=== PATIENT | male | born 1970 | race Caucasian/White ===

== ENCOUNTER 2016-12-23 06:47 | Emergency (ER) | payer OTHER ==
[2016-12-23 06:53] VITALS: BP 119/73; PULSE 86; RESP 20; TEMP 98.4; O2SAT 93
--- NOTE | 2016-12-23 07:11 | EDPHY ---
H & P Stated Complaint: allergic reaction to leftt eye Time Seen by Provider: 12/23/16 06:57 HPI/ROS: CHIEF COMPLAINT: Periorbital swelling HISTORY OF PRESENT ILLNESS: Patient presents to the ED with a 1 day history of periorbital swelling. 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 The patient did take Benadryl prior to arrival. The patient denies any difficulty breathing, sensation of or pharyngeal swelling or generalized rash. The patient denies any new prescription medications. 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 REVIEW OF SYSTEMS: A comprehensive 10 point review of systems is otherwise negative aside from elements mentioned in the history of present illness. Source: Family Exam Limitations: No limitations - Personal History Current Tetanus Diphtheria and Acellular Pertussis (TDAP): Unsure - Medical/Surgical History Hx Asthma: No Hx Chronic Respiratory Disease: No Hx Diabetes: No Hx Cardiac Disease: No Hx Renal Disease: No Hx Cirrhosis: No Hx Alcoholism: No Hx HIV/AIDS: No Hx Splenectomy or Spleen Trauma: No Other PMH: alkylosing spondylosis, gerd, L shoulder surg - Social History Smoking Status: Never smoked - Physical Exam Exam: General Appearance: Alert, no distress Eyes: Pupils equal and round no pallor or injection ENT, Mouth: Mucous membranes moist Respiratory: There are no retractions, lungs are clear to auscultation Cardiovascular: Regular rate and rhythm Gastrointestinal: Abdomen is soft and nontender, no masses, bowel sounds normal Neurological: A&O, normal motor function, normal sensory exam, normal cranial nerves Skin: Periorbital swelling consistent with mild allergic reaction Musculoskeletal: Neck is supple nontender Extremities: symmetrical, full range of motion Constitutional: Initial Vital Signs Temperature (C) 36.9 C 12/23/16 06:51 Heart Rate 86 12/23/16 06:51 Respiratory Rate 20 12/23/16 06:51 Blood Pressure 119/73 12/23/16 06:51 O2 Sat (%) 93 12/23/16 06:51 O2 Delivery Mode Room Air Allergies/Adverse Reactions: kiwi Allergy (Verified 12/23/16 06:49) pollen extracts Allergy (Verified 12/23/16 06:50) Home Medications: Medication Instructions Recorded Enbrel 01/14/16 Unk Gerd Med 01/14/16 Medical Decision Making ED Course/Re-evaluation: The patient presents to the ED with a mild allergic reaction. The patient took Benadryl prior to arrival. He will be provided a prescription for prednisone. The patient will be discharged home with customary aftercare instructions and return precautions. Departure - Departure Disposition: Home, Routine, Self-Care Clinical Impression: Allergic reaction Condition: Good Instructions: Allergies (ED) Additional Instructions: 1. Take Benadryl 50 mg every 6 hours as needed. 2. Take prednisone as directed for next 5 days. 3. Please return to the ED for markedly worsening symptoms or other concerns. 4. Please use albuterol inhaler as needed for any shortness of breath. Referrals: BRANDON ANGEL [Primary Care Provider] - As per Instructions
== END 2016-12-23 07:15 | disposition home or self-care (01) ==
DX: T78.40XA Allergy, unspecified, initial encounter (principal)

== ENCOUNTER 2017-01-27 13:53 | Emergency (ER) | payer OTHER ==
[2017-01-27 14:07] VITALS: BP 136/92; PULSE 78; RESP 16; TEMP 98.8; O2SAT 98
--- NOTE | 2017-01-27 14:50 | EDPHY ---
H & P Time Seen by Provider: 01/27/17 14:38 HPI/ROS: CHIEF COMPLAINT: Scalp lesions HISTORY OF PRESENT ILLNESS: 46-year-old male complaining of a scalp lesions x2. The 1st on his right temporal region has been present for few years and he recently noticed a new lesion in his lower occipital region. These are both nontender. These have both never been evaluated by medical professional. No drainage. PHYSICAL EXAM (Prior to examination, patient consented to physical exam, hands were washed and my usual and customary physical exam procedures followed) 1) GENERAL: Well-developed, well-nourished, alert and oriented. Appears to be in no acute distress. 2) HEAD: Normocephalic 3) HEENT: sclera anicteric 4) LUNGS: Breathing comfortably. 5) SKIN: on the patient's right temporal region and on his right lower occipital region he has two discrete lesions which appear to be superficial, nontender, fluctuant. Smoking Status: Never smoked Constitutional: Initial Vital Signs Temperature (C) 37.1 C 01/27/17 14:00 Heart Rate 78 01/27/17 14:00 Respiratory Rate 16 01/27/17 14:00 Blood Pressure 136/92 H 01/27/17 14:00 O2 Sat (%) 98 01/27/17 14:00 O2 Delivery Mode Room Air Allergies/Adverse Reactions: kiwi Allergy (Verified 01/27/17 14:00) pollen extracts Allergy (Verified 01/27/17 14:00) Home Medications: Medication Instructions Recorded Enbrel 01/14/16 Unk Gerd Med 01/14/16 Albuterol [Ventolin Hfa Inhaler] 2 puffs IH QID PRN #1 mdi 12/23/16 predniSONE [prednisone 20mg (RX)] 3 tab PO DAILY #15 tab 12/23/16 MDM/Departure - [facility] ED Course/Re-evaluation: The patient's lesions are subacute, I do not think they are consistent with infection or cellulitis. I do not think antibiotics indicated. We discussed possible etiologies including, but not limited to malignancy like, lipoma, Pilar cyst. 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 He has been given this referral information. - Depart Disposition: Home, Routine, Self-Care Clinical Impression: Skin lesion of scalp Condition: Good Instructions: Acute Rash (ED) Referrals: Agustni Madison MD [Medical Doctor] - 5-7 days, call for appt. (Dr. Agustin Madison is a zipper sewing machine operator)
== END 2017-01-27 14:50 | disposition home or self-care (01) ==
DX: L98.9 Disorder of the skin and subcutaneous tissue, unspecified (principal)

== ENCOUNTER 2017-11-12 12:53 | Emergency (ER) | payer OTHER ==
[2017-11-12 13:25] VITALS: RESP 16; TEMP 98.1
[2017-11-12] MEDS ORDERED: DIAZEPAM 5 MG/ML 1 ML SYR IVP ONE (15:50)
--- NOTE | 2017-11-12 15:55 | EDPHY ---
H & P Smoking Status: Never smoked <Letty Gautam M - Last Filed: 11/12/17 18:10> <Azul Forbes M - Last Filed: 11/13/17 16:54> Time Seen by Provider: 11/12/17 15:24 HPI/ROS: CHIEF COMPLAINT: Back pain, syncopal episodes HISTORY OF PRESENT ILLNESS: 47-year-old male presents to the emergency department by private vehicle complaining of severe low back pain. The patient has a history of ankylosing spondylitis and is on Enbrel. He has been doing well over the last year. He forgot his medication over the last week and then remember to take it yesterday. He was starting to have pain last night in his low back. He states he woke up at 3:30 a.m. This morning and had a syncopal episode while he was urinating. He woke about a carpeted floor. He states that he remembered feeling dizzy and lightheaded and very unstable and lowered himself to the carpeted floor. He did not think that he hit his head or lost consciousness. No neck pain. He was sitting at the breakfast table this morning at 7:00 a.m. And had an urge to urinate and then subsequently had a syncopal episode again. He did not hit his head or lose consciousness. He denies headache. He presents now to the emergency department with back pain. He does have a history of ankylosing spondylitis however he states that this feels much different. He denies dysuria, urgency or frequency with urination. REVIEW OF SYSTEMS: Constitutional: No fever, no chills. Eyes: No double or blurry vision. ENT: No sore throat. Respiratory: No cough, no shortness of breath. Cardiac: No chest pain. Gastrointestinal: No abdominal pain, vomiting or diarrhea. Genitourinary: No dysuria. Musculoskeletal: Back pain. No neck pain. Skin: No rashes. Neurological: No headache. (Letty Gautam) Past Medical/Surgical History: Ankylosing spondylitis, GERD, orthopedic surgery (Letty Gautam) Social History: (Letty Gautam) Physical Exam: General Appearance: Alert, no distress. No visible signs of trauma to his head. He is mentating normally and answering questions appropriately. 102/83, 93, 97% on room air. Eyes: Pupils equal and round. Extraocular motions are all intact. ENT: Mouth: Mucous membranes moist. Respiratory: No wheezing, rhonchi, or rales, lungs are clear to auscultation. Cardiovascular: Regular rate and rhythm. Gastrointestinal: Abdomen is soft and nontender, no masses, no rebound or guarding, bowel sounds normal. Neurological: Alert and oriented x 3, cranial nerves II through XII grossly intact Skin: Warm and dry, no rashes. Musculoskeletal: Nontender to palpate along the cervical, thoracic or lumbar spine. Neck is supple. Unable to reproduce pain with palpation in his lumbar spine with. Patient has pain with straight leg raise especially when relaxes his leg back down. Reflexes are 2+ and equal for lower extremities bilaterally. He has pain with trying to roll laterally onto his left side. There is no inflammation or redness noted to his back. No rash. Extremities: Full range of motion and no peripheral edema. Psychiatric: Patient is oriented X 3, there is no agitation. (Letty Gautam) Constitutional: Initial Vital Signs Temperature (C) 36.7 C 11/12/17 13:22 Heart Rate 93 11/12/17 13:22 Respiratory Rate 16 11/12/17 13:22 Blood Pressure 102/83 H 11/12/17 13:22 O2 Sat (%) 97 11/12/17 13:22 O2 Delivery Mode Room Air Allergies/Adverse Reactions: kiwi Allergy (Verified 11/12/17 13:26) pollen extracts Allergy (Verified 11/12/17 13:26) Home Medications: Medication Instructions Recorded Enbrel 01/14/16 Unk Gerd Med 01/14/16 Albuterol [Ventolin Hfa Inhaler] 2 puffs IH QID PRN #1 mdi 12/23/16 predniSONE [prednisone 20mg (RX)] 3 tab PO DAILY #15 tab 12/23/16 methylPREDNISolone [Medrol Dose 1 each PO AD #0 ea 11/12/17 Solo] Medical Decision Making - Diagnostics Imaging: I viewed and interpreted images myself <Letty Gautam - Last Filed: 11/12/17 18:10> <Azul Forbes - Last Filed: 11/13/17 16:54> ED Course/Re-evaluation: 39-year-old male presents to the emergency department with back pain as well as 2 episodes of syncope. EKG and laboratory studies were all unremarkable. The patient received 15 mg of IV Toradol, lidocaine patch, 5 mg of IV Valium. The patient was also seen examined by Dr. Azul Forbes else. Patient will be discharged with a Medrol Dosepak. He was encouraged to return to the emergency department if he had any change in symptoms or felt worse in any way. (Letty Gautam) Differential Diagnosis: Syncope including but not limited to vasovagal syncope, arrhythmia, dehydration , and blood loss. Back pain including but not limited to muscular pain, herniated disc, spine fracture, intra-abdominal causes and urinary tract infection. (Letty Gautam) Other Provider: I evaluated and participated in the management of the patient. I also evaluated the patient independently. My co-signature indicates that I have reviewed this chart and I agree with the findings and plan of care as documented. My personal H&P findings include: 47-year-old gentleman presenting following 2 syncopal episodes, which sound like vasovagal/make duration syncope. The syncopal episodes were precipitated by back pain which began yesterday. Patient reports that he believes his back pain is secondary to a poorly fitting , heavy, backpack. He does have a history of ankylosing spondylitis and has been off of his Enbrel for several weeks. Today's pain is low, to the right of lumbar spine. There is no radicular symptoms. Patient has had difficulties with ibuprofen causing short-term memory difficulties. He will be discharged with lidocaine patch, Flexeril, and Medrol Dosepak for acute back pain. ( Azul Forbes) - Data Points Laboratory Results: Laboratory Results 11/12/17 16:04 11/12/17 16:04 Medications Given: Discontinued Medications Diazepam (Valium) 5 mg IVP EDNOW ONE Stop: 11/12/17 15:51 Last Admin: 11/12/17 16:02 Dose: 5 mg Ketorolac Tromethamine (Toradol) 15 mg IVP EDNOW ONE Stop: 11/12/17 18:11 Last Admin: 11/12/17 18:19 Dose: 15 mg Miscellaneous Medication (Icy Hot Lidocaine/Menthol 4%/1% Patch) 1 patch TD EDNOW ONE Stop: 11/12/17 18:17 Last Admin: 11/12/17 18:19 Dose: 1 patch Departure <Letty Gautam - Last Filed: 11/12/17 18:10> <Azul Forbes - Last Filed: 11/13/17 16:54> - Departure Disposition: Home, Routine, Self-Care Clinical Impression: Low back pain Qualifiers: Chronicity: acute Back pain laterality: left Sciatica presence: without sciatica Qualified Code(s): M54.5 - Low back pain Syncope Qualifiers: Syncope type: vasovagal syncope Qualified Code(s): R55 - Syncope and collapse Condition: Good Instructions: Syncope (ED), Low Back Strain (ED), Back Pain (ED) Additional Instructions: Continue your Enbrel as prescribed. Please return to the emergency department if your symptoms in her back pain change or worsen. Activity as tolerated. Referrals: BRANDON ANGEL [Primary Care Provider] - As per Instructions Prescriptions: methylPREDNISolone [Medrol Dose Solo] 1 each PO AD #0 ea Report Scribed for: Azul Forbes Report Scribed by: Sharmin Eldridge Date of Report: 11/12/17 Time of Report: 18:03 <Azul Forbes - Last Filed: 11/13/17 16:54>
--- NOTE | 2017-11-12 16:08 | CPEKG ---
Heart Rate: 75 RR Interval: 800 P-R Interval: 164 QRSD Interval: 102 QT Interval: 400 QTC Interval: 447 P [place]: 41 QRS [place]: 34 T Wave [place]: 67 EKG Severity - OTHERWISE NORMAL ECG - EKG Impression: SINUS RHYTHM EKG Impression: LOW VOLTAGE IN FRONTAL LEADS Electronically Signed By: Mayra Estrella 12-Nov-2017 21:08:41
[2017-11-12 16:19] LABS: PLATELET COUNT 250 10^3/uL (150-400)
[2017-11-12 17:30] VITALS: BP 120/86; PULSE 82; O2SAT 96
[2017-11-12] MEDS ORDERED: KETOROLAC 30 MG/1 ML SDV IVP ONE ×2 (17:57→18:10)
[2017-11-12] MEDS ORDERED: LIDOCAINE 4%/MENTHOL 1% PATCH TD ONE ×2 (18:14→18:16)
[2017-11-12] MEDS ORDERED: PATCH REMOVAL 1 EA PATCH TD SCH (21:00)
== END 2017-11-12 18:28 | disposition home or self-care (01) ==
DX: M54.5 Low back pain (principal); R55 Syncope and collapse
CPT/HCPCS: 96374; J1885; J3360